=== PATIENT | female | born 1955 | race Caucasian/White ===

== ENCOUNTER 2022-12-12 13:37 | Emergency (ER) | payer MEDICARE, SELFPAY ==
[2022-12-12 13:43] VITALS: BP 151/89; PULSE 83; RESP 16; TEMP 36.4; O2SAT 96; BMI 23.2
--- NOTE | 2022-12-12 14:16 | CRLHL7_ITS ---
For Patients: As a result of the Century Cures Act, medical imaging exams and procedure reports are released immediately into your electronic medical record. You may view this report before your referring provider. If you have questions, please contact your health care provider. INDICATION: Dizziness. COMPARISON: None. TECHNIQUE: Multiplanar T1, T2, FLAIR and diffusion-weighted imaging. FINDINGS: Normal brain parenchymal morphology. Scattered patchy foci of T2/FLAIR signal hyperintensity within the white matter are nonspecific but likely represent chronic deep white matter small ischemic changes or sequela migraine headache. No intracranial hemorrhage. No abnormal ventricular dilatation. Intracranial vascular flow voids are preserved. No mass effect. No midline shift. No restricted diffusion to suggest acute ischemia. No susceptibility artifact of remote hemorrhage. Bilateral orbits are unremarkable. Normal appearing sella. Visualized paranasal sinuses and mastoid air cells are unremarkable. IMPRESSION: 1. No acute intracranial abnormality 2. Normal brain parenchymal morphology. Scattered patchy T2/FLAIR signal hyperintensity within the white matter may represent chronic deep white matter small vessel ischemic changes or sequela of migraine headaches. 3. No acute or chronic intracranial hemorrhage Dictated by Darren Meredith MD @ 12/12/2022 5:27:02 PM (Electronically Signed)
--- NOTE | 2022-12-12 14:33 | ED.GENADULT ---
HPI - General Adult General Date Seen: 12/12/22 Chief complaint: Dizziness/Vertigo Stated complaint: Dizziness Time Seen by Provider: 12/12/22 13:53 Source: patient Mode of arrival: ambulatory Limitations: no limitations History of Present Illness HPI narrative: Patient is a 67-year-old woman who denies any prior significant health history who comes in for dizziness. She says when she woke up this morning she just felt kind of off, not like herself. When I tried a drill down on what she means she says that the back of her head feels buzzy or heavy, she just does not feel like herself. She has a little bit of low level what she describes as dizziness although it is not vertigo. She does not have pain. She says she got up, had some breakfast and then went to work and about 930 had a spell at work where she again denies vertigo but says that she felt like her head was heavy and she leaned to the right to catch her balance. She said she had to hold on to furniture to make it back to her desk where she sat down. She arranged for someone to cover for her and then her came to pick her up from work, they apparently went to urgent care but it was closed. She says by about 10 30 those symptoms had resolved although she still feels like she is not quite herself. She does not describe any focal neurologic changes otherwise. She has not had difficulty with speech, strength, and there was no described facial droop. She denies any medical history, she does note that sometimes she has sensation that her heart is racing, and that when she checks her pulse it is irregular. She has never had that evaluated. She denies any recent illness, vomiting, diarrhea, chest pain, black or bloody stools, fevers or other complaints. She she says she has not been to a doctor for probably 15 years, but does have an appointment made with Dr. Mccormick coming up. She takes no medications, has restless legs, no other health history, does not smoke or drink. Related Data Home Medications Medication Instructions Recorded Confirmed No Known Home Medications 12/12/22 12/12/22 Allergies Allergy/AdvReac Type Severity Reaction Status Date / Time amoxicillin Allergy Unknown doesn't Verified 12/12/22 13:16 work Review of Systems Status of ROS: Reports: 10 or more systems reviewed and unremarkable except as noted in History and below [facility] Social History Smoking Status: Never smoker How often do you have a drink containing alcohol: never AUDIT-C Alcohol total score: 0 Non-prescribed substance use: denies use Exam Narrative: Exam Narrative: Vital signs as noted above. In general, an alert, well-appearing patient. Speech is fluent, breathing easily. Head: Normocephalic, atraumatic. Eyes: Pupils are equal reactive. Extraocular movements are full. No significant nystagmus. Conjunctivae are normal. ENT: Mucous membranes are moist. Throat is normal. Tongue is midline. TMs normal bilaterally. Neck: Supple without lymphadenopathy. Heart: Regular rate and rhythm. No murmur or rub. Lungs: Clear bilaterally. No increased work of breathing, crackles or wheezes. Abdomen: Soft and nontender. No organomegaly. Extremities: Well perfused. No edema. No calf tenderness. Pulses intact. Neurologic: Patient is alert and oriented to person and place. Speech is fluent. Face is symmetric. Moves all extremities equally. Cerebellar function is intact by finger-nose testing. Affect: Normal. Skin: Warm and dry. Well perfused. Const: Vital Signs, click to edit/add: Vital Signs - 24 hr 12/12/22 13:43 12/12/22 17:24 Temperature 97.6 F 98.1 F Pulse Rate [Right Pulse Oximeter] 83 78 Respiratory Rate 16 16 Blood Pressure [Ri ght Upper Arm] 151/89 H 148/88 H Pulse Oximetry 96 95 Oxygen Delivery Me thod Room Air Room Air Documenting provider has reviewed patient's vital signs: yes Course Course Hospital Course: Etiology of patient's symptoms is somewhat unclear. Her exam is unremarkable. She is mildly hypertensive here, baseline blood pressure is unknown given that she does not go to the doctor. She describes this history of palpitations and possibly irregular heart rate that has never been further evaluated. For today, I do not think she is in atrial fibrillation but cannot rule out that history. I will do an MRI just to rule out stroke as a cause for her symptoms. Labs to evaluate for possible metabolic or infectious derangement. EKG. Workup here is unrevealing. Her CBC shows a normal white blood cell count, hemoglobin of 14.2 and normal platelets. Metabolic panel aside from a mildly low sodium of 132 is normal. LFTs normal, CRP 0.6, point of care troponin 0. EKG showed a normal sinus rhythm today ventricular rate of [address] segment changes. T-waves are unremarkable. I did get an MRI of the brain without contrast which is read by Radiology as showing no acute intracranial abnormality. Some small-vessel ischemic disease or sequela of migraine headache is noted. No other findings. Discussed with her I do not have a clear explanation for her symptoms today which are in and of themselves somewhat nonspecific. She may be having some element of positional vertigo. She is feeling well at this time, I think it is reasonable to discharge home she can follow up in clinic as planned next week. If she worsens acutely or develops new symptoms such as fevers, vomiting, focal neurologic symptoms etcetera return to the emergency department at any time. At this point she does not feel like she needs any kind of medication for dizziness. Vital Signs Vital signs: Initial Vital Signs Temperature 97.6 F 12/12/22 13:43 Temperature Source Temporal Artery Scan 12/12/22 13:43 Pulse Rate 83 12/12/22 13:43 Respiratory Rate 16 12/12/22 13:43 Blood Pressure 151/89 H 12/12/22 13:43 Blood Pressure Mean 109 H 12/12/22 13:43 Blood Pressure Position Sitting 12/12/22 13:43 Pulse Oximetry 96 12/12/22 13:43 Oxygen Delivery Method Room Air 12/12/22 13:43 Vital Signs Temperature 97.6 F 12/12/22 13:43 Pulse Rate 83 12/12/22 13:43 Respiratory Rate 16 12/12/22 13:43 Blood Pressure 151/89 H 12/12/22 13:43 Pulse Oximetry 96 12/12/22 13:43 Oxygen Delivery Method Room Air 12/12/22 13:43 Temperature 98.1 F 12/12/22 17:24 Pulse Rate 78 12/12/22 17:24 Respiratory Rate 16 12/12/22 17:24 Blood Pressure 148/88 H 12/12/22 17:24 Pulse Oximetry 95 12/12/22 17:24 Oxygen Delivery Method Room Air 12/12/22 17:24 Medical Decision Making Lab Data Labs: Lab Results 12/12/22 12/12/22 Range/Units 14:17 14:28 WBC 9.09 (4.50-11.00) K/uL RBC 4.84 (4.00-5.20) m/uL Hgb 14.2 (12.0-16.0) gm/dL Hct 43.2 (33.0-51.0) % MCV 89 (80-100) fL MCH 29 (26-34) pg MCHC 33 (32-36) gm/dL RDW Coeff of Naomy 11.9 (11.5-15.5) % Plt Count 338 (140-440) K/uL Neut % (Auto) 75.8 H (42.0-72.0) % Lymph % (Auto) 16.8 L (20-44) % [place] % (Auto) 6.2 (0.0-11.0) % Eos % (Auto) 0.4 (0.0-7.0) % Baso % (Auto) 0.6 (0.0-3.0) % Neut # (Auto) 6.90 (1.7-7.0) K/uL Lymph # (Auto) 1.50 (0.90-2.90) K/uL [place] # (Auto) 0.60 (0.00-0.90) K/UL Eos # (Auto) 0.04 (0.00-0.50) K/uL Baso # (Auto) 0.05 (0.00-0.30) K/uL Abs Immat Gran (auto) 0.02 (0.00-0.30) K/uL Imm/Tot Granulo (auto) 0.2 % Sodium 132 L (135-149) mmol/L Potassium 4.6 (3.6-5.1) mmol/L Chloride 99 (96-114) mmol/L Carbon Dioxide 27 (20-32) mmol/L Anion Gap 6 L (7-15) mEq/L BUN 9 (7-30) mg/dL Creatinine 0.7 (0.5-1.5) mg/dL Estimated Creat Clear 59.03 Estimated GFR 95 ml/min Glucose 98 (60-115) mg/dL Calcium 9.3 (8.4-10.6) mg/dL Total Bilirubin 0.5 (0.1-1.5) mg/dL Direct Bilirubin 0.0 (0.0-0.5) mg/dL AST 25 (12-35) U/L ALT 20 (4-35) U/L Alkaline Phosphatase 86 (40-150) U/L C-Reactive Protein 0.6 (0.5-1.0) mg/dL Total Protein 7.7 (6.0-8.3) g/dL Albumin 4.4 (3.3-5.0) g/dL POC Troponin I 0.00 L (0.01-0.04) ng/ml Discharge Plan Discharge Clinical Impression: Dizziness Patient Disposition: Home, Self-Care Condition: Stable Instructions: Dizziness (ED) Additional Instructions: Follow-up next week as planned. For severe symptoms or focal neurologic deficits, fevers, vomiting, or other acute worsening, return to the emergency department. Prescriptions: No Action No Known Home Medications Follow Up/Referrals: Rhett Mccormick MD [Primary Care Provider] - Stand Alone Forms: [employer] Info Instructions
[2022-12-12 14:42] LABS: Basophils Absolute Auto 0.05 K/uL (0.00-0.30); Basophils Percent Auto 0.6 % (0.0-3.0); Eosinophils Absolute Auto 0.04 K/uL (0.00-0.50); Eosinophils Percent Auto 0.4 % (0.0-7.0); Hematocrit 43.2 % (33.0-51.0); Hemoglobin* 14.2 gm/dL (12.0-16.0); Immature Granulocytes Abs Auto 0.02 K/uL (0.00-0.30); Immature Granulocytes Pct Auto 0.2 %; Lymphocytes Percent Auto 16.8 % (20-44); Mean Corpuscular HGB Conc 33 gm/dL (32-36); Mean Corpuscular Hemoglobin 29 pg (26-34); Mean Corpuscular Volume 89 fL (80-100); Monocytes Percent Auto 6.2 % (0.0-11.0); Neutrophils Percent Auto 75.8 % (42.0-72.0); Platelet Count* 338 K/uL (140-440); RDW Coefficient of Variation % 11.9 % (11.5-15.5); Red Blood Count 4.84 m/uL (4.00-5.20); Slide Review Reflex No; White Blood Count* 9.09 K/uL (4.50-11.00)
[2022-12-12 14:53] LABS: Albumin* 4.4 g/dL (3.3-5.0)
[2022-12-12 14:54] LABS: Chloride* 99 mmol/L (96-114); Potassium* 4.6 mmol/L (3.6-5.1); Sodium* 132 mmol/L (135-149)
[2022-12-12 14:56] LABS: Total Protein* 7.7 g/dL (6.0-8.3)
[2022-12-12 14:57] LABS: Alanine Aminotransferase* 20 U/L (4-35); Alkaline Phosphatase* 86 U/L (40-150); Aspartate Amino Transferase* 25 U/L (12-35); Bilirubin Total* 0.5 mg/dL (0.1-1.5); Creatinine* 0.7 mg/dL (0.5-1.5); Est. Creatinine Clearance* 59.03; Estimated Glomerular Filt Rate 95 ml/min
[2022-12-12 14:58] LABS: Anion Gap 6 mEq/L (7-15); Blood Urea Nitrogen* 9 mg/dL (7-30); Calcium* 9.3 mg/dL (8.4-10.6); Carbon Dioxide* 27 mmol/L (20-32); Glucose* 98 mg/dL (60-115)
[2022-12-12 15:00] LABS: C Reactive Protein* 0.6 mg/dL (0.5-1.0)
[2022-12-12 17:24] VITALS: BP 148/88; PULSE 78; RESP 16; TEMP 36.7; O2SAT 95
== END 2022-12-12 17:39 | disposition home or self-care (01) ==
PROVIDERS: Emergency Provider Emergency Medicine; PCP Internal Medicine
DX: R42 Dizziness and giddiness (principal)
CPT/HCPCS: 36415; 70551; 80048; 80076; 84484; 85025; 86140; 93005; 99284; 99285